=== PATIENT | male | born 1985 | race Caucasian/White ===

== ENCOUNTER 2018-03-22 10:23 | Emergency (ER) | payer OTHER ==
[2018-03-22 10:28] VITALS: BP 158/81
[2018-03-22] MEDS ORDERED: TDAP ADULT 0.5 ML INJ (BOOSTRIX) IM ONE (10:34)
--- NOTE | 2018-03-22 10:34 | EDPHY ---
H & P <Dima Fried E - Last Filed: 03/22/18 12:04> Smoking Status: Never smoked <Kris Cortez - Last Filed: 03/22/18 14:21> Time Seen by Provider: 03/22/18 10:28 HPI/ROS: CHIEF COMPLAINT: Right hand injury HISTORY OF PRESENT ILLNESS: 32-year-old [id number] male accidentally closed the trash compactor on his right 4th and 5th digit middle phalanx last evening. Complaining of pain in abrasion to the 4th and 5th digit dorsal aspect middle phalanx. Tetanus out-of-date. No paresthesia. Reproducible pain with range of motion. No extensor or flexor defects. PHYSICAL EXAM (Prior to examination, patient consented to physical exam, hands were washed and my usual and customary physical exam procedures followed) 1) GENERAL: Well-developed, well-nourished, alert and oriented. Appears to be in no acute distress. 2) HEAD: Normocephalic 3) HEENT: Pupils equal, round, reactive to light bilaterally. 4) LUNGS: Breathing comfortably. 5) MUSCULOSKELETAL: Soft compartments. Normal coloration. 6) SKIN: Right 4th and 5th digit middle phalanx dorsal aspect abrasion and tenderness. No deformity no angulation. No signs of infection. Negative kanavel. 7) VASCULAR: pulses and cap refill present are brisk 8) NEUROLOGIC: Radial, ulnar, median nerve function intact with no deficits appreciated on exam DIFFERENTIAL DIAGNOSIS: in no particular order including but not limited to fracture, sprain, compartment syndrome (Kris Cortez) Constitutional: Initial Vital Signs Temperature (C) 36.7 C 03/22/18 10:25 Respiratory Rate 16 03/22/18 10:25 Blood Pressure 158/81 H 03/22/18 10:25 O2 Sat (%) 95 03/22/18 10:25 O2 Delivery Mode Room Air Allergies/Adverse Reactions: No Known Allergies Allergy (Unverified 03/14/15 13:26) Home Medications: Medication Instructions Recorded Cephalexin [Keflex] 500 mg PO TID 5 Days cap 03/22/18 Lopressor 25 mg (*) 03/22/18 MDM/Departure - MDM Imaging: Discussed imaging studies w/ call center dispatcher Radiologist <Dima Fried - Last Filed: 03/22/18 12:04> <Kris Cortez - Last Filed: 03/22/18 14:21> - [facility] Imaging Results: Imaging Impressions Hand X-Ray 03/22/18 10:29 Impression: Negative. Images reviewed myself (Kris Cortez) Medications Given: Discontinued Medications Diphtheria/Tetanus/Acell Pertussis (Boostrix) 0.5 ml IM .ONCE ONE Stop: 03/22/18 10:35 Last Admin: 03/22/18 10:42 Dose: 0.5 ml ED Course/Re-evaluation: Re-evaluation with serial examinations. No evidence of infection to his fingers. Plan will be discharge, prophylactic antibiotics. My usual and customary wound precautions instructions provided. Care of patient under supervision of secondary supervising physician Dr Dima Fried. (Kris Cortez) - Depart Disposition: Home, Routine, Self-Care Clinical Impression: Crush injury to finger Qualifiers: Encounter type: initial encounter Qualified Code(s): S67.10XA - Crushing injury of unspecified finger(s), initial encounter Condition: Good Instructions: Crush Injury (ED) Additional Instructions: Return to the ER if you develop redness, swelling, discharge, warmth to the wound, red streaks going up your arm, or any other symptoms that concern you. Stand Alone Forms: Work Excuse Prescriptions: Cephalexin [Keflex] 500 mg PO TID 5 Days cap Referrals: Jocelynn Crawford MD [Medical Doctor] - 2-3 days, call for appt.
== END 2018-03-22 11:08 | disposition home or self-care (01) ==
DX: S67.10XA Crushing injury of unspecified finger(s), initial encounter (principal); Z23 Encounter for immunization; W23.1XXA Caught, crushed, jammed, or pinched between stationary objects, initial encounter; Y93.9 Activity, unspecified; Y92.9 Unspecified place or not applicable; Y99.0 Civilian activity done for income or pay